=== PATIENT | male | born 1955 | race Caucasian/White ===

== ENCOUNTER → 2024-06-19 06:47 | Outpatient (REF) | payer MEDICARE, OTHER, SELFPAY | LOC: PAVMRI 06:47 | PROVIDERS: ATTENDING PHYSICIAN Student in an Organized Health Care Education/Training Program; FAMILY PHYSICIAN Nurse Practitioner Acute Care; OTHER PHYSICIAN Internal Medicine Cardiovascular Disease | DX: M25.572 Pain in left ankle and joints of left foot (principal) | CPT/HCPCS: 73718; 73721 ==

== ENCOUNTER 2024-08-04 06:13 | Day surgery (SDC) | payer MEDICARE, OTHER, SELFPAY ==
[2024-08-04] VITALS (10 sets, daily range): BP systolic 137–173; BP diastolic 81–110; BMI 28.3
[2024-08-04] MEDS: CELEBREX 200 MG PO (09:23)
[2024-08-04] MEDS: TYLENOL 1000 MG PO (09:23)
[2024-08-04] MEDS: NORMOSOL-R/PLASMALYTE-A 1000 IV (09:23)
[2024-08-04] MEDS: ERYTHROMYCIN 0.5% OPHTHALMIC OINTMENT 1 APPLIC OPHTH (15:08)
== END 2024-08-04 16:45 | disposition home or self-care (01) ==
LOC: SDS 06:13
PROVIDERS: ATTENDING PHYSICIAN Student in an Organized Health Care Education/Training Program
DX: M21.42 Flat foot [pes planus] (acquired), left foot (principal); M21.072 Valgus deformity, not elsewhere classified, left ankle; M25.572 Pain in left ankle and joints of left foot; M67.02 Short Achilles tendon (acquired), left ankle; M76.822 Posterior tibial tendinitis, left leg; M24.572 Contracture, left ankle
CPT/HCPCS: 28725; 28740; 27687; 28200; 73630; 76000; C1713